=== PATIENT | female | born 1965 | race Caucasian/White ===

== ENCOUNTER → 2016-03-23 | Outpatient (CLI) | payer BC ==
[~2016-03-23] MED LIST: FLUT0.15 NAE; MISCCAP80 PO; MULT-506 PO; NAPR1TAB9 PO; PRT/20 PO
--- NOTE | 2016-03-24 07:31 | MAMMOGRAPHY REPORT ---
BILATERAL FIRST EVER DIGITAL SCREENING MAMMOGRAM TOMOSYNTHESIS WITH CAD: 03/23/2016 CLINICAL HISTORY: Routine screening. Patient has no complaints. TECHNIQUE: Breast tomosynthesis in addition to standard 2D mammography was performed. Current study was also evaluated with a Computer Aided Detection (CAD) system. COMPARISON: No prior exams were available for comparison. BREAST COMPOSITION: The tissue of both breasts is almost entirely fatty. FINDINGS: No suspicious masses, calcifications, or areas of architectural distortion are noted in e ither breast. Scattered bilateral benign-appearing calcifications are noted. IMPRESSION: ACR BI-RADS CATEGORY 2: BENIGN There is no mammographic evidence of malignancy. A 1 year screening mammogram is recommended. The p atient will receive written notification of the results. Approximately 10% of breast cancers are not detected with mammography. A negative mammographic repor t should not delay biopsy if a clinically suggestive mass is present. Roxy Sanabria M.D. ah/:03/23/2016 15:56:37 [employer]olta[employer] Designer: Deepti Oconnor, [facility] letter sent: Normal 1/2 BI-RADS Code: ACR BI-RADS Category 2: Benign
== END | disposition home or self-care (01) ==
LOC: C.MAMM 13:29
PROVIDERS: ATTEND Nurse Practitioner Family
DX: Z12.31 Encounter for screening mammogram for malignant neoplasm of breast (principal)

== ENCOUNTER → 2016-07-18 | Outpatient (CLI) | payer BC ==
[~2016-07-18] VITALS: Ht 165.1 cm; Wt 119.6 kg
[2016-07-18 16:21] VITALS: BP 132/71; PULSE 71; Ht 165.1 cm; Wt 119.6 kg
== END | disposition home or self-care (01) ==
LOC: C.NEUR 15:21
PROVIDERS: ATTEND Internal Medicine Pulmonary Disease
DX: R06.83 Snoring (principal); R53.83 Other fatigue; R06.81 Apnea, not elsewhere classified; G47.26 Circadian rhythm sleep disorder, shift work type; G47.61 Periodic limb movement disorder; F51.3 Sleepwalking [somnambulism]

== ENCOUNTER → 2016-08-25 | Outpatient (CLI) | payer BC ==
--- NOTE | 2016-08-26 05:45 | SPLIT NIGHT TECHNICIAN REPORT ---
[facility] Split Night Polysomnogram - Principal Architect Report Study date: 08/25/2016 Referring Physician: Raciel Motley M.D. Name: CULLEN MARTÍNEZ Principal Architect: DANIEL Lyon. Date of : 1965 Height: 51 years, Height Sex: Female Weight: Age: 51 Neck Circum: 16inches BMI: Medications: Aleve, Flonase, Advil, Multi Vitamin, Naproxen 375mg Patient History Study started on room air with no ETCO2 monitoring in room 36. 51 yr old female here tonight for a possible split psg if she qualifies. She complains of loud snoring, witnessed apnea fragmented sleep and circadian rhythm shift work disorder. Her ESS=13/24. Neck circ=16inches. Parameters Monitored NPSG: E1-M2, E2-M1, Fp1-M2, Fp2-M1, F3-M2, F4-M2, F4-M1, C3-M2, C4-M2, C4-M1, O1-M2, O2-M2, O2-M1, T3-M2, T4-M1, P3-M2, P4-M1, CHIN1, CHIN2, HR, EKG, Legs, PFLOW, SNOR, FLOW, CFLOW, Tidal Volume, THOR, ABDO, SpO2, PLTH, CPRESS, ETCO2 Wave, ETCO2, pH SLEEP SUMMARY DATA DIAGNOSTIC TREATMENT Lights Out: 10:17:39 PM 1:39:39 AM Lights On: 1:28:39 AM 5:38:09 AM Total Recording Time (TRT): 191.5 min. 238.5 min. Total Sleep Time (TST): 97.0 min. 229.5 min. NREM Time: 68.5 min. 185.0 min. REM Time: 28.5 min. 44.5 min. Sleep Period Time (SPT): 152.0 min. 237.0 min. Sleep Efficiency (SE): 51 % 96 % Sleep Latency: 39.0 min. 1.5 min. Arousal Index: 14.8 2.1 PAP Treatment Levels: 5, 7 * Optimal Pressure(s) SLEEP STAGING DATA DIAGNOSTIC TREATMENT Duration (min) TST % Duration (min) TST % Stage Wake: 94.0 min. -- 9.0 min. -- WASO: 55.0 min. -- 7.5 min. -- NREM: 68.5 min. 71 % 185.0 min. 81 % Stage N1: 18.0 min. 19 % 6.5 min. 3 % Stage N2: 42.0 min. 43 % 116.0 min. 51 % Stage N3: 8.5 min. 9 % 62.5 min. 27 % REM: 28.5 min. 29 % 44.5 min. 19 % POSITIONAL DATA Event Count Index Event Count Index Supine: N/A N/A 3 3.3 Supine NREM: N/A N/A 3 4.8 Supine REM: N/A N/A 0 0 Non-Supine: 60 37.1 0 0.0 Non-Supine NREM: 45 39.4 0 0.0 Non-Supine REM: 15 31.6 0 0.0 AROUSAL SUMMARY DATA: Event Count Index Event Count Index Apnea Arousals: 2 2.5 0 0.0 Hypopnea Arousals: 11 6.8 1 0.3 Snore Arousals: 8 4.9 0 0.0 PLM Arousals: 4 2.5 0 0.0 Non-Specific Arousals: 0 0.0 6 1.6 Total Arousals: 24 14.8 8 2.1 MYOCLONUS (PLM) Event Count Index Event Count Index PLM: 28 17.3 2 0.5 PLM AROUSAL: 4 2.5 0 0.0 PLM W/O AROUSAL 28 17.3 2 0.5 PLM W/RESP EVENT 0 0.0 0 0.0 MYOCLONUS (PLM) Event Count Index Event Count Index LM: 3 20.4 5 1.3 LM AROUSAL: 3 1.9 0 0.0 LM W/O AROUSAL LM W/RESP EVENT LM NON SPECIFIC 37 22.9 7 1.8 HEART RATE DATA DIAGNOSTIC TREATMENT Sleep (bpm): 75 67 REM (bpm): 84 92 NREM (bpm): 90 90 Tachycardia Count: 0 0 Tachycardia Duration: 0.00 0 Bradycardia Count: 0 0 Bradycardia Duration: 0.00 0 DIAGNOSTIC PORTION TREATMENT PORTION RESPIRATORY DATA Event Count Index Event Count Index AHI: -- 37.1 -- 0.8 RDI: -- 37.1 -- 1 Obstructive Apnea: 4 2.5 0 0.0 Central Apnea: 0 0.0 0 0.0 Mixed Apnea: 0 0.0 0 0.0 Hypopnea: 56 34.6 3 0.8 RERA: 0 0.0 0 0.0 Total Apneas: 4 2.5 0 0.0 RESPIRATORY DATA REM NREM SLEEP REM NREM SLEEP Supine Position: Obstructive Apneas: N/A N/A N/A 0 0 0 Central Apneas: N/A N/A N/A 0 0 0 Mixed Apneas: N/A N/A N/A 0 0 0 Hypopneas: N/A N/A N/A 0 3 3 RERA N/A N/A N/A 0 0 0 Total Supine Events: N/A N/A N/A 0 3 3 Supine AHI: N/A N/A N/A 0 4.8 3.3 Supine RDI: N/A N/A N/A 0.0 4.8 3.3 REM NREM SLEEP REM NREM SLEEP Non-Supine Position: Obstructive Apneas: 0 4 4 0 0 0 Central Apneas: 0 0 0 0 0 0 Mixed Apneas: 0 0 0 0 0 0 Hypopneas: 15 41 56 0 0 0 RERA 0 0 0 0 0 0 Total Supine Events: 15 45 60 0 0 0 Supine AHI: 31.6 39.4 37.1 0.0 0.0 0.0 Supine RDI: 31.6 39.4 37.1 0.0 0.0 0.0 OXYGEN DESTAURATION DATA: Event Count Index Event Count Index REM Desaturations: 20 42.1 1 1.3 NREM Desaturations: 50 43.8 7 2.3 SNORE DATA DIAGNOSTIC TREATMENT Snore Time: 17.6 1:41:09 AM Snore TST%: 12 1 Snore Arousal Count: 8 0 Snore Arousal Index: 4.9 0.0 Desaturation Event Summary: Minimum %SpO2 Event Count Mean/Min/Max Duration(sec.) Desaturation Index % Time In Bed > 90 81 22.4 / 10.3 / 60.0 28.4 40.7 86 - 90 45 25.6 / 11.0 / 59.5 12.3 52.0 81 - 85 12 30.6 / 13.8 / 55.0 24.3 7.0 76 - 80 0 N/A 0.0 0.3 71 - 75 0 N/A 0.0 0.0 66 - 70 0 N/A 0.0 0.0 61 - 65 0 N/A 0.0 0.0 56 - 60 0 N/A 0.0 0.0 51 - 55 0 N/A 0.0 0.0 < 50 0 N/A 0.0 0.0 OXYGEN SATURATION DATA DIAGNOSTIC TREATMENT SpO2 Mean Sleep: 88 % 90 % SpO2 Mean REM: 84 % 92 % SpO2 Mean NREM: 90 % 90 % SpO2 Minimum Sleep: 78 % 83 % SpO2 Minimum REM: 78 % 87 % SpO2 Minimum NREM: 81 % 83 % Time Below 90% (TST): 60.6 90.0 Time Below 88% (TST): 40.1 15.3 Total REM NREM Awake <50% 0.0 min. 0.0 min. 0.0 min. 0.0 min. 51 - 60% 0.0 min. 0.0 min. 0.0 min. 0.0 min. 61 - 70% 0.0 min. 0.0 min. 0.0 min. 0.0 min. 71 - 80% 1.3 min. 1.3 min. 0.0 min. 0.0 min. 81 - 90% 248.6 min. 43.8 min. 160.2 min. 44.5 min. 91 - 100% 171.2 min. 27.8 min. 93.3 min. 50.1 min. Average 90 89 90 91 Minimum SpO2 78 78 81 83 Desaturation Event Index 14.7 17.3 13.5 15.7 # Desat. Events below 89% 76 20 44 12 Time(%) with Saturation below 89% 21.7 8.6 10.7 2.4 Time(min.) with Saturation below 89% 91.5 36.4 44.9 10.2 Recording Principal Architect Comments: Mrs. Martínez slept in the right, left, supine and prone positions. No cardiac arrhythmia noted. PLM's noted. No bruxism noted. Snoring was noted and scored as a 4 on a scale of 1 through 5. (0=no snoring, 5=snoring loud enough to be heard through a closed door or down the [address] way) At 1:39am she had met specific Split-Night criteria during the diagnostic portion of this study. CPAP was initiated at +5 CMH2O and up-titrated to an optimal level of +7 CMH2O, which nearly eliminated all respiratory events and snoring. An Eson 2 nasal mask by Jimmy was used during titration. She awoke to use the restroom 2 times during the night. She stated that she slept well. The final report will be interpreted and signed by a sleep physician. The completed physician report will then be placed in the patient medical record. Therapy Event: Therapy (cm H20) 0 5 7 Total Time at Pressure (min.) 191.0 77.9 160.6 TST at Pressure (min.) 97.0 74.9 154.6 # Periods 1 1 1 Sleep Onset (min.) 39.0 1.5 0.0 REM Onset (min.) 162.0 65.0 0.0 Sleep Efficiency % 50 96 96 Wakefulness (%) 49.2 3.9 3.7 Wakefulness (min.) 94.0 3.0 6.0 NREM 1 (%) 9.4 3.9 2.2 NREM 1 (min.) 18.0 3.0 3.5 NREM 2 (%) 22.0 30.8 57.3 NREM 2 (min.) 42.0 24.0 92.0 NREM 3 (%) 4.5 44.9 17.1 NREM 3 (min.) 8.5 35.0 27.5 REM (%) 14.9 16.5 19.7 REM (min.) 28.5 12.9 31.6 # Arousals 24 5 3 Arousal Index 14.8 4.0 1.2 # Snore 671 40 5 Snore Index 415.1 32.0 1.9 AHI 37.1 2.4 0.0 AHI Supine N/A 6.6 0.0 AHI Non-Supine 37.1 0.0 0.0 NREM AHI 39.4 2.9 0.0 REM AHI 31.6 0.0 0.0 RDI 37.1 2.4 0.0 # Obstructive 4 0 0 # Central Ap 0 0 0 # Mixed 0 0 0 # Hypopneas 56 3 0 RERAS 0 0 0 Total Respiratory Events 60 3 0 Time Below SpO2 89.00% (min.) 47.3 11.1 22.9 Mean NREM SpO2 (%) 90 89 90 Mean REM SpO2 (%) 84 88 93 Mean Sleep SpO2 (%) 88 89 91 Min NREM SpO2 (%) 81 83 86 Min REM SpO2 (%) 78 87 88 Position Supine (min.) 0.0 27.3 26.5 Position Non-supine (min.) 97.0 47.6 128.1 LM Index Sleep 37.7 0.8 2.3 LM Index NREM 53.4 1.0 2.9 LM Index REM 0.0 0.0 0.0 Mean Heart Rate (bpm) 75 69 66 Min Heart Rate (bpm) 58 61 53
--- NOTE | 2016-08-30 10:05 | Sleep Study ---
Sleep Study Report Date of Service: August 25, 2016 Sleep Study Report Clinical data: 51-year-old female with obesity, snoring, witnessed apnea, fatigue, fragmented sleep architecture, and circadian rhythm shift work disorder. She is referred for a split night sleep study. Sleep architecture: For the diagnostic portion of the study, total sleep time was 97 minutes divided between 68.5 minutes of non-REM sleep and 28.5 minutes of REM sleep. Sleep latency was delayed at 39 minutes. Sleep efficiency was reduced at 51 percent. Arousal index was elevated at 14.8. Sleep consisted of stage N1 19 percent, stage N2 43 percent, stage N3 9 percent, and REM 29 percent. For the treatment portion of the study, total sleep time was 229.5 minutes divided between 185 minutes of non-REM sleep and 44.5 minutes of REM sleep. Sleep latency was 1.5 minutes. Arousal index was 2.1. Sleep efficiency was 96 percent. Sleep consisted of stage N1 3 percent, stage N2 51 percent, stage N3 27 percent, and REM 19 percent. Arousal data: Prior to treatment, 24 arousals were recorded for an index of 14.8 per hour. During treatment: 8 arousals were recorded for an index of 2.1 per hour. PLM data: Prior to treatment, 37 limb movements during sleep were noted for an index of 22.9 per hour. During treatment, 7 limb movements were noted with an index of 1.8 per hour. EKG: Heart rates ranged from 67 to 92 beats per minute. No arrhythmias were noted. Respiratory data: Prior to treatment, severe sleep apnea was documented. The AHI was 37.1. There were 4 obstructive apneic episodes and 56 hypopneas. During treatment, the average AHI was 0.8. There were 3 hypopneas. Oximetry data: Nocturnal hypoxemia was seen. Oxygen katherin was 78 percent during non-REM sleep prior to treatment. Mean saturation with treatment was 90 percent. Treatment summary: The patient slept in the right, left, supine, and prone positions. Snoring was loud, rated 4 on a scale of 1 through 5. At 1:39 a.m., the patient met split night criteria. She used an Eson 2 nasal mask by [employer]. She was titrated up to her final pressure setting of 7 centimeters water pressure. At that level, she slept for 154.6 minutes with an AHI of 0. Impression: Severe obstructive sleep apnea/hypopnea with a diagnostic AHI of 37.1 with nocturnal hypoxemia corrected with CPAP 7 centimeters water pressure. Recommendation: The patient should be started on the above-noted treatment regimen and seen back in follow-up within 90 days to document efficacy and compliance. Copies To 1: Tiara Gaston.
== END | disposition home or self-care (01) ==
LOC: C.NEUR 20:00
PROVIDERS: ATTEND Internal Medicine Pulmonary Disease
DX: G47.26 Circadian rhythm sleep disorder, shift work type (principal); R53.83 Other fatigue; R06.83 Snoring; G47.33 Obstructive sleep apnea (adult) (pediatric)

== ENCOUNTER → 2016-10-17 | Outpatient (CLI) | payer BC ==
[~2016-10-17] VITALS: Ht 167.6 cm; Wt 118.2 kg
[2016-10-17 15:36] VITALS: BP 116/78; PULSE 81; Ht 167.6 cm; Wt 118.2 kg
== END | disposition home or self-care (01) ==
LOC: C.NEUR 15:25
PROVIDERS: ATTEND Internal Medicine Pulmonary Disease
DX: G47.33 Obstructive sleep apnea (adult) (pediatric) (principal); G47.26 Circadian rhythm sleep disorder, shift work type; G47.61 Periodic limb movement disorder

== ENCOUNTER → 2017-01-02 | Outpatient (CLI) | payer BC ==
[~2017-01-02] VITALS: Ht 167.6 cm; Wt 117.5 kg
[2017-01-02 14:16] VITALS: BP 124/78; PULSE 84; Ht 167.6 cm; Wt 117.5 kg
== END | disposition home or self-care (01) ==
LOC: C.NEUR 13:35
PROVIDERS: ATTEND Internal Medicine Pulmonary Disease
DX: G47.33 Obstructive sleep apnea (adult) (pediatric) (principal); G47.00 Insomnia, unspecified

== ENCOUNTER → 2017-09-25 | Outpatient (CLI) | payer BC ==
[~2017-09-25] MED LIST changes: +OPTIRAY 320 IV PRN
--- NOTE | 2017-09-25 13:58 | DIAGNOSTIC IMAGING REPORT ---
ABD/PELVIS IV AND ORAL CONT CLINICAL HISTORY: 52 years-old Female presenting with LLQ PAIN, left lower quadrant tenderness, nausea, change in bowel habits. TECHNIQUE: Multidetector CT of the abdomen and pelvis was performed after the administration of oral and intravenous contrast. IV contrast: 91 mL of Optiray 320. A dose lowering technique was used consistent with the principles of ALARA (as low as reasonably achievable). COMPARISON: 08/16/2009. CT DOSE (mGy.cm): The estimated cumulative dose is 1492.46 mGy.cm. FINDINGS: [employer] topogram: Unremarkable. Lung bases: Minimal basilar opacities, likely atelectasis. 6 mm solid nodule in the left lower lobe (series 3 image 27), minimally increased in size since the prior exam in 2009. Solid 6 mm nodule in the right lower lobe (series 3 image 17), also minimally increased in size since the prior exam. These are consistent with benign etiologies. Normal heart size. No pericardial or pleural effusion. Liver: Normal morphology. No liver lesion. Patent hepatic vasculature. Biliary: No intrahepatic or extrahepatic biliary ductal dilatation. Gallbladder contains gallstones. Pancreas: Normal. Spleen: Normal. Adrenal glands: Normal. Kidneys and ureters: Normal. No hydronephrosis. Bladder: Incompletely evaluated secondary to underdistention. Pelvic organs: Uterus and ovaries normal. Bowel: Few diverticula noted in the distal sigmoid colon. No bowel wall thickening or surrounding inflammatory change. No bowel obstruction. Peritoneal cavity: No free fluid or intraperitoneal gas. Lymph nodes: No enlarged lymph nodes in the abdomen or pelvis. Vasculature: Aorta and IVC patent and normal in caliber. Abdominal wall: Small fat-containing umbilical hernia. Musculoskeletal: Degenerative changes of the spine. Mild degenerative changes of the hip joints. IMPRESSION: 1. No acute intra-abdominal pathology. Few diverticula in the sigmoid colon. No evidence of diverticulitis. Electronically signed by: Anthony Lee M.D. 09/25/2017 1:56 PM Dictated Date/Time: 09/25/2017 1:49 PM
== END | disposition home or self-care (01) ==
LOC: C.CTS 11:32
PROVIDERS: ATTEND Family Medicine
DX: K57.30 Diverticulosis of large intestine without perforation or abscess without bleeding (principal)